=== PATIENT | male | born 1970 | race Caucasian/White ===

== ENCOUNTER 2023-05-22 14:57 | Inpatient (IN) | payer OTHER ==
[2023-05-22 15:41] VITALS: BMI 29.1
[2023-05-22] MEDS ORDERED: MAGNESIUM HYDROX 2400MG/30ML ORAL SUSPENSION 30 ML CUP PO PRN (16:06)
[2023-05-22] MEDS ORDERED: POLYETHYLENE GLYCOL (HEALTHYLAX) 3350 17 GM PACKET PO PRN (16:06)
[2023-05-22] MEDS ORDERED: BENZOCAINE/MENTHOL (CHLORASEPTIC ) LOZENGE MM PRN (16:06)
[2023-05-22] MEDS ORDERED: AMMONIUM LACTATE 12% LOTION 225 GM BOTTLE TP PRN (16:06)
[2023-05-22] MEDS ORDERED: NALOXONE HCL (KLOXXADO) 8 MG SPRAY NS PRN (16:06)
[2023-05-22] MEDS ORDERED: IBUPROFEN 400 MG TABLET (FP) PO PRN (16:06)
[2023-05-22] MEDS ORDERED: LOPERAMIDE HCL 2 MG CAPSULE PO PRN (16:06)
[2023-05-22] MEDS ORDERED: TUBERCULIN PPD 5 TU/0.1ML SYRINGE (IN PATIENT USE ONLY) ID ONE (16:06)
[2023-05-22] MEDS ORDERED: guaiFENesin 600 MG TABLET.ER (FP) PO PRN (16:06)
[2023-05-22] MEDS ORDERED: MAG HYDROX/AL HYDROX/SIMETH 30 ML UNIT-DOSE CUP PO PRN (16:06)
[2023-05-22] MEDS ORDERED: IBUPROFEN 600 MG TABLET (FP) PO PRN (16:06)
[2023-05-22] MEDS ORDERED: BENZONATATE 200 MG CAPSULE PO PRN (16:06)
[2023-05-22] MEDS ORDERED: COLLOIDAL OATMEAL 1 BAR EACH TP PRN (16:06)
[2023-05-22] MEDS ORDERED: NALOXONE HCL 0.4 MG/ML VIAL IM PRN (16:06)
[2023-05-22] MEDS ORDERED: SENNOSIDES 8.6MG TABLET (FP) PO PRN (16:51)
[2023-05-22] MEDS ORDERED: [UNRECOGNIZED DRUG - OTHER] PO PRN (16:51)
[2023-05-22] MEDS ORDERED: DEXTROMETHORPHAN PO PRN (16:51)
[2023-05-22] MEDS ORDERED: BENZOCAINE PO PRN (16:51)
[2023-05-22] MEDS ORDERED: RAMELTEON 8 MG PO PRN (16:51)
[2023-05-22] MEDS ORDERED: TUBERCULIN PPD 5 TU/0.1ML VIAL ID ONE (18:05)
[2023-05-22] MEDS: NICOTINE 7 MG/24 HOURS TOPICAL PATCH TD SCH (18:08)
[2023-05-22] MEDS ORDERED: ATORVASTATIN CA 40 MG TABLET (FP) ONE (21:08)
[2023-05-22] MEDS: THIAMINE HCL 100 MG TABLET (FP) PO SCH (21:39)
[2023-05-22] MEDS: MELATONIN 5 MG TABLETS PO SCH (21:39)
[2023-05-22] MEDS: DIVALPROEX SODIUM 500 MG TABLET E.C. PO SCH (21:39)
[2023-05-22] MEDS: GABAPENTIN 300 MG CAPSULE PO SCH (21:39)
[2023-05-22] MEDS: ATORVASTATIN CA 80 MG TABLET (FP) PO SCH (21:39)
[2023-05-22] MEDS: INSULIN (LEVEMIR) 100 UNITS/ML UNITS SQ SCH (21:40)
[2023-05-22] MEDS: SACUBITRIL/VALSARTAN 24 MG-26 MG TABLET PO SCH (21:56)
[2023-05-22] MEDS: CARVEDILOL 12.5 MG TABLET (FP) PO SCH (23:31)
[2023-05-23] MEDS: ACETAMINOPHEN 325 MG TABLET (FP) PO PRN ×2 (06:17→21:02)
[2023-05-23] MEDS: PATIENT'S OWN MEDICATION (NON-FORMULARY) (Insulin Lispro [Humalog] 100 UNIT/ML Vial) SQ SCH ×2 (07:11→07:15)
[2023-05-23] MEDS ORDERED: INSULIN SLIDING SCALE (NOVOLOG) 1 VIAL SQ ONE (08:00)
[2023-05-23] MEDS ORDERED: INSULIN (NOVOLOG) ASPART 100 UNITS/ML 10ML VIAL SQ ONE (08:00)
[2023-05-23] MEDS: PRENATAL VITAMINS W/ FOLIC ACID TABLET (FP) PO SCH (09:58)
[2023-05-23] MEDS: ASPIRIN 81 MG CHEWABLE TABLETS PO SCH (09:58)
[2023-05-23] MEDS: NICOTINE 7 MG/24 HOURS TOPICAL PATCH TD SCH (09:59)
[2023-05-23] MEDS: GABAPENTIN 300 MG CAPSULE PO SCH ×2 (09:59→21:01)
[2023-05-23] MEDS: PANTOPRAZOLE 40 MG TABLET PO SCH (09:59)
[2023-05-23] MEDS: CLOPIDOGREL BISULFATE 75 MG TABLET (FP) PO SCH (09:59)
[2023-05-23] MEDS: CARVEDILOL 12.5 MG TABLET (FP) PO SCH ×2 (09:59→21:01)
[2023-05-23] MEDS: DIVALPROEX SODIUM 500 MG TABLET E.C. PO SCH ×2 (09:59→21:01)
[2023-05-23] MEDS: FUROSEMIDE 40 MG TABLET (FP) PO SCH (09:59)
[2023-05-23] MEDS: SPIRONOLACTONE 25 MG TABLET PO SCH (09:59)
[2023-05-23] MEDS ORDERED: INSULIN SLIDING SCALE (NOVOLOG) 1 VIAL SQ SCH ×2 (11:00)
[2023-05-23] MEDS: SACUBITRIL/VALSARTAN 24 MG-26 MG TABLET PO SCH ×2 (11:36→21:01)
[2023-05-23] MEDS: INSULIN SLIDING SCALE (NOVOLOG) 1 VIAL SQ SCH ×2 (11:39→16:38)
[2023-05-23] MEDS ORDERED: ATORVASTATIN CA 40 MG TABLET (FP) ONE (18:43)
[2023-05-23] MEDS: THIAMINE HCL 100 MG TABLET (FP) PO SCH (21:01)
[2023-05-23] MEDS: MELATONIN 5 MG TABLETS PO SCH (21:01)
[2023-05-23] MEDS: ATORVASTATIN CA 80 MG TABLET (FP) PO SCH (21:01)
[2023-05-23] MEDS: INSULIN (LEVEMIR) 100 UNITS/ML UNITS SQ SCH (21:03)
[2023-05-24] MEDS: ACETAMINOPHEN 325 MG TABLET (FP) PO PRN ×2 (06:35→20:50)
[2023-05-24] MEDS: INSULIN SLIDING SCALE (NOVOLOG) 1 VIAL SQ SCH ×3 (06:38→17:13)
[2023-05-24] MEDS: EMPAGLIFLOZIN 25 MG TABLET PO SCH (06:50)
[2023-05-24 08:36] LABS: URINE APPEARANCE CLEAR; URINE BILIRUBIN NEGATIVE (NEGATIVE); URINE COLOR YELLOW; URINE GLUCOSE (UA) 3+ (NEGATIVE); URINE KETONE TRACE (NEGATIVE); URINE LEUK ESTERASE NEGATIVE (NEGATIVE); URINE NITRITE NEGATIVE (NEGATIVE); URINE PROTEIN TRACE (NEGATIVE); URINE UROBILINOGEN 0.2 mg/dL (0.2-1.0)
[2023-05-24] MEDS: GABAPENTIN 300 MG CAPSULE PO SCH ×2 (09:44→21:20)
[2023-05-24] MEDS: CLOPIDOGREL BISULFATE 75 MG TABLET (FP) PO SCH (09:44)
[2023-05-24] MEDS: DIVALPROEX SODIUM 500 MG TABLET E.C. PO SCH ×2 (09:44→21:20)
[2023-05-24] MEDS: PRENATAL VITAMINS W/ FOLIC ACID TABLET (FP) PO SCH (09:44)
[2023-05-24] MEDS: FUROSEMIDE 40 MG TABLET (FP) PO SCH (09:44)
[2023-05-24] MEDS: SPIRONOLACTONE 25 MG TABLET PO SCH (09:44)
[2023-05-24] MEDS: PANTOPRAZOLE 40 MG TABLET PO SCH (09:44)
[2023-05-24] MEDS: ASPIRIN 81 MG CHEWABLE TABLETS PO SCH (09:45)
[2023-05-24] MEDS: CARVEDILOL 12.5 MG TABLET (FP) PO SCH ×2 (09:45→21:20)
[2023-05-24] MEDS: NICOTINE 7 MG/24 HOURS TOPICAL PATCH TD SCH (09:48)
[2023-05-24] MEDS: SACUBITRIL/VALSARTAN 24 MG-26 MG TABLET PO SCH ×2 (10:51→21:21)
[2023-05-24] MEDS ORDERED: ATORVASTATIN CA 40 MG TABLET (FP) ONE (19:11)
[2023-05-24] MEDS: MELATONIN 5 MG TABLETS PO SCH (21:21)
[2023-05-24] MEDS: THIAMINE HCL 100 MG TABLET (FP) PO SCH (21:21)
[2023-05-24] MEDS: ATORVASTATIN CA 80 MG TABLET (FP) PO SCH (21:21)
[2023-05-24] MEDS: INSULIN (LEVEMIR) 100 UNITS/ML UNITS SQ SCH (21:22)
[2023-05-25] MEDS: INSULIN SLIDING SCALE (NOVOLOG) 1 VIAL SQ SCH ×3 (07:29→16:46)
[2023-05-25] MEDS: EMPAGLIFLOZIN 25 MG TABLET PO SCH (07:39)
[2023-05-25] MEDS: PRENATAL VITAMINS W/ FOLIC ACID TABLET (FP) PO SCH (10:14)
[2023-05-25] MEDS: CLOPIDOGREL BISULFATE 75 MG TABLET (FP) PO SCH (10:15)
[2023-05-25] MEDS: PANTOPRAZOLE 40 MG TABLET PO SCH (10:15)
[2023-05-25] MEDS: DIVALPROEX SODIUM 500 MG TABLET E.C. PO SCH ×2 (10:15→21:13)
[2023-05-25] MEDS: ASPIRIN 81 MG CHEWABLE TABLETS PO SCH (10:15)
[2023-05-25] MEDS: FUROSEMIDE 40 MG TABLET (FP) PO SCH (10:15)
[2023-05-25] MEDS: SACUBITRIL/VALSARTAN 24 MG-26 MG TABLET PO SCH ×2 (10:15→21:14)
[2023-05-25] MEDS: GABAPENTIN 300 MG CAPSULE PO SCH ×2 (10:15→21:12)
[2023-05-25] MEDS: CARVEDILOL 12.5 MG TABLET (FP) PO SCH ×2 (10:15→21:12)
[2023-05-25] MEDS: SPIRONOLACTONE 25 MG TABLET PO SCH (10:16)
[2023-05-25] MEDS: NICOTINE 7 MG/24 HOURS TOPICAL PATCH TD SCH (10:16)
[2023-05-25] MEDS: ACETAMINOPHEN 325 MG TABLET (FP) PO PRN ×2 (11:57→17:39)
[2023-05-25] MEDS ORDERED: ATORVASTATIN CA 20 MG TABLET (FP) ONE (19:27)
[2023-05-25] MEDS: ATORVASTATIN CA 80 MG TABLET (FP) PO SCH (21:13)
[2023-05-25] MEDS: THIAMINE HCL 100 MG TABLET (FP) PO SCH (21:13)
[2023-05-25] MEDS: MELATONIN 5 MG TABLETS PO SCH (21:13)
[2023-05-25] MEDS: INSULIN (LEVEMIR) 100 UNITS/ML UNITS SQ SCH (21:14)
[2023-05-26] MEDS: EMPAGLIFLOZIN 25 MG TABLET PO SCH (06:13)
[2023-05-26] MEDS: ACETAMINOPHEN 325 MG TABLET (FP) PO PRN (06:13)
[2023-05-26] MEDS: INSULIN SLIDING SCALE (NOVOLOG) 1 VIAL SQ SCH ×3 (06:13→16:22)
[2023-05-26] MEDS: PRENATAL VITAMINS W/ FOLIC ACID TABLET (FP) PO SCH (10:20)
[2023-05-26] MEDS: NICOTINE 7 MG/24 HOURS TOPICAL PATCH TD SCH (10:21)
[2023-05-26] MEDS: CLOPIDOGREL BISULFATE 75 MG TABLET (FP) PO SCH (10:21)
[2023-05-26] MEDS: DIVALPROEX SODIUM 500 MG TABLET E.C. PO SCH ×2 (10:21→21:01)
[2023-05-26] MEDS: SPIRONOLACTONE 25 MG TABLET PO SCH (10:21)
[2023-05-26] MEDS: PANTOPRAZOLE 40 MG TABLET PO SCH (10:21)
[2023-05-26] MEDS: ASPIRIN 81 MG CHEWABLE TABLETS PO SCH (10:21)
[2023-05-26] MEDS: FUROSEMIDE 40 MG TABLET (FP) PO SCH (10:21)
[2023-05-26] MEDS: GABAPENTIN 300 MG CAPSULE PO SCH ×2 (10:22→21:01)
[2023-05-26] MEDS: CARVEDILOL 12.5 MG TABLET (FP) PO SCH ×2 (10:24→21:01)
[2023-05-26] MEDS: SACUBITRIL/VALSARTAN 24 MG-26 MG TABLET PO SCH ×2 (10:24→21:02)
[2023-05-26] MEDS: LIDOCAINE 5% TOPICAL PATCH TP SCH (11:30)
[2023-05-26] MEDS ORDERED: ATORVASTATIN CA 40 MG TABLET (FP) ONE (18:49)
[2023-05-26] MEDS: THIAMINE HCL 100 MG TABLET (FP) PO SCH (21:01)
[2023-05-26] MEDS: MELATONIN 5 MG TABLETS PO SCH (21:01)
[2023-05-26] MEDS: INSULIN (LEVEMIR) 100 UNITS/ML UNITS SQ SCH (21:02)
[2023-05-26] MEDS: ATORVASTATIN CA 80 MG TABLET (FP) PO SCH (21:02)
[2023-05-26] MEDS: LIDOCAINE PATCH REMOVAL MC SCH (21:03)
[2023-05-26] MEDS: hydrOXYzine PAMOATE 25 MG CAPSULE (FP) PO PRN (21:03)
[2023-05-27] MEDS: INSULIN SLIDING SCALE (NOVOLOG) 1 VIAL SQ SCH ×3 (06:31→16:19)
[2023-05-27] MEDS: EMPAGLIFLOZIN 25 MG TABLET PO SCH (07:03)
[2023-05-27] MEDS: SPIRONOLACTONE 25 MG TABLET PO SCH (09:59)
[2023-05-27] MEDS: PRENATAL VITAMINS W/ FOLIC ACID TABLET (FP) PO SCH (09:59)
[2023-05-27] MEDS: GABAPENTIN 300 MG CAPSULE PO SCH ×2 (10:00→21:16)
[2023-05-27] MEDS: CLOPIDOGREL BISULFATE 75 MG TABLET (FP) PO SCH (10:00)
[2023-05-27] MEDS: FUROSEMIDE 40 MG TABLET (FP) PO SCH (10:00)
[2023-05-27] MEDS: PANTOPRAZOLE 40 MG TABLET PO SCH (10:00)
[2023-05-27] MEDS: DIVALPROEX SODIUM 500 MG TABLET E.C. PO SCH ×2 (10:00→21:16)
[2023-05-27] MEDS: ASPIRIN 81 MG CHEWABLE TABLETS PO SCH (10:00)
[2023-05-27] MEDS: LIDOCAINE 5% TOPICAL PATCH TP SCH (10:01)
[2023-05-27] MEDS: NICOTINE 7 MG/24 HOURS TOPICAL PATCH TD SCH (10:02)
[2023-05-27] MEDS: CARVEDILOL 12.5 MG TABLET (FP) PO SCH ×2 (10:20→21:16)
[2023-05-27] MEDS: SACUBITRIL/VALSARTAN 24 MG-26 MG TABLET PO SCH ×2 (10:25→21:16)
[2023-05-27 14:24] LABS: POTASSIUM 4.2 mmol/L (3.5-5.1)
[2023-05-27 14:27] LABS: BASO % 0.5 % (0-2.0); CALCIUM 8.7 mg/dL (8.5-10.1); EOS % 3.7 % (0-4.5); HEMATOCRIT 36.2 % (35.4-49); HEMOGLOBIN 12.6 GM/dL (11.7-16.9); LYMPH % 27.9 % (8-40); MCH 31.1 pg (25.7-33.7); MCHC 34.8 g/dl (32.0-35.9); MEAN CELL VOLUME 89.3 fl (80-96); MEAN PLT VOLUME 7.6 fl (7.5-11.1); MONO % 9.5 % (3.8-10.2); NEUT % 58.4 % (42.8-82.8); PLATELET COUNT 171 10^3/uL (134-434); RBC 4.05 M/mm3 (4.00-5.60); RDW 18.3 % (11.9-15.9); WHITE BLOOD COUNT 3.8 K/mm3 (4.0-10.0)
[2023-05-27 14:28] LABS: ALBUMIN 3.2 g/dl (3.4-5.0); BLOOD UREA NITROGEN 26.6 mg/dL (7-18); MAGNESIUM 2.1 mg/dL (1.8-2.4)
[2023-05-27 14:31] LABS: INR 1.07 (0.83-1.09); PHOSPHOROUS 3.9 mg/dL (2.5-4.9); PROTHROMBIN TIME (PATIENT) 12.4 SEC (9.7-13.0)
[2023-05-27 14:32] LABS: TOT PROT 6.7 g/dl (6.4-8.2)
[2023-05-27 14:33] LABS: BILIRUBIN,TOTAL 0.2 mg/dL (0.2-1)
[2023-05-27] MEDS: ACETAMINOPHEN 325 MG TABLET (FP) PO PRN (18:08)
[2023-05-27] MEDS ORDERED: ATORVASTATIN CA 40 MG TABLET (FP) ONE (18:50)
[2023-05-27] MEDS: THIAMINE HCL 100 MG TABLET (FP) PO SCH (21:15)
[2023-05-27] MEDS: ATORVASTATIN CA 80 MG TABLET (FP) PO SCH (21:16)
[2023-05-27] MEDS: MELATONIN 5 MG TABLETS PO SCH (21:16)
[2023-05-27] MEDS: hydrOXYzine PAMOATE 25 MG CAPSULE (FP) PO PRN (21:17)
[2023-05-27] MEDS: INSULIN (LEVEMIR) 100 UNITS/ML UNITS SQ SCH (21:18)
[2023-05-27] MEDS: LIDOCAINE PATCH REMOVAL MC SCH (21:19)
[2023-05-28] MEDS: INSULIN SLIDING SCALE (NOVOLOG) 1 VIAL SQ SCH ×3 (06:29→16:27)
[2023-05-28] MEDS: EMPAGLIFLOZIN 25 MG TABLET PO SCH (06:30)
[2023-05-28] MEDS: LIDOCAINE 5% TOPICAL PATCH TP SCH (09:41)
[2023-05-28] MEDS: CLOPIDOGREL BISULFATE 75 MG TABLET (FP) PO SCH (09:42)
[2023-05-28] MEDS: SACUBITRIL/VALSARTAN 24 MG-26 MG TABLET PO SCH ×2 (09:42→21:30)
[2023-05-28] MEDS: FUROSEMIDE 40 MG TABLET (FP) PO SCH (09:42)
[2023-05-28] MEDS: PANTOPRAZOLE 40 MG TABLET PO SCH (09:42)
[2023-05-28] MEDS: GABAPENTIN 300 MG CAPSULE PO SCH ×2 (09:42→21:29)
[2023-05-28] MEDS: ASPIRIN 81 MG CHEWABLE TABLETS PO SCH (09:42)
[2023-05-28] MEDS: CARVEDILOL 12.5 MG TABLET (FP) PO SCH ×2 (09:42→21:29)
[2023-05-28] MEDS: DIVALPROEX SODIUM 500 MG TABLET E.C. PO SCH ×2 (09:42→21:29)
[2023-05-28] MEDS: PRENATAL VITAMINS W/ FOLIC ACID TABLET (FP) PO SCH (09:42)
[2023-05-28] MEDS: SPIRONOLACTONE 25 MG TABLET PO SCH (09:42)
[2023-05-28] MEDS: NICOTINE 7 MG/24 HOURS TOPICAL PATCH TD SCH (09:43)
[2023-05-28] MEDS: ACETAMINOPHEN 325 MG TABLET (FP) PO PRN ×2 (09:45→21:31)
[2023-05-28] MEDS ORDERED: ATORVASTATIN CA 40 MG TABLET (FP) ONE (18:43)
[2023-05-28] MEDS: MELATONIN 5 MG TABLETS PO SCH (21:29)
[2023-05-28] MEDS: ATORVASTATIN CA 80 MG TABLET (FP) PO SCH (21:29)
[2023-05-28] MEDS: THIAMINE HCL 100 MG TABLET (FP) PO SCH (21:29)
[2023-05-28] MEDS: hydrOXYzine PAMOATE 25 MG CAPSULE (FP) PO PRN (21:30)
[2023-05-28] MEDS: INSULIN (LEVEMIR) 100 UNITS/ML UNITS SQ SCH (21:32)
[2023-05-28] MEDS: LIDOCAINE PATCH REMOVAL MC SCH (21:32)
[2023-05-29] MEDS: EMPAGLIFLOZIN 25 MG TABLET PO SCH (06:58)
[2023-05-29] MEDS: INSULIN SLIDING SCALE (NOVOLOG) 1 VIAL SQ SCH ×3 (06:58→16:38)
[2023-05-29] MEDS: PANTOPRAZOLE 40 MG TABLET PO SCH (09:56)
[2023-05-29] MEDS: CLOPIDOGREL BISULFATE 75 MG TABLET (FP) PO SCH (09:56)
[2023-05-29] MEDS: GABAPENTIN 300 MG CAPSULE PO SCH ×2 (09:56→21:04)
[2023-05-29] MEDS: PRENATAL VITAMINS W/ FOLIC ACID TABLET (FP) PO SCH (09:56)
[2023-05-29] MEDS: ASPIRIN 81 MG CHEWABLE TABLETS PO SCH (09:56)
[2023-05-29] MEDS: NICOTINE 7 MG/24 HOURS TOPICAL PATCH TD SCH (09:56)
[2023-05-29] MEDS: DIVALPROEX SODIUM 500 MG TABLET E.C. PO SCH ×2 (09:56→21:04)
[2023-05-29] MEDS: FUROSEMIDE 40 MG TABLET (FP) PO SCH (09:56)
[2023-05-29] MEDS: SPIRONOLACTONE 25 MG TABLET PO SCH (09:57)
[2023-05-29] MEDS: SACUBITRIL/VALSARTAN 24 MG-26 MG TABLET PO SCH ×2 (09:57→21:04)
[2023-05-29] MEDS: CARVEDILOL 12.5 MG TABLET (FP) PO SCH ×2 (09:57→21:04)
[2023-05-29] MEDS: LIDOCAINE 5% TOPICAL PATCH TP SCH (09:58)
[2023-05-29] MEDS ORDERED: INSULIN SLIDING SCALE (NOVOLOG) 1 VIAL SQ ONE (12:01)
[2023-05-29] MEDS ORDERED: ATORVASTATIN CA 40 MG TABLET (FP) ONE (18:43)
[2023-05-29] MEDS: MELATONIN 5 MG TABLETS PO SCH (21:03)
[2023-05-29] MEDS: THIAMINE HCL 100 MG TABLET (FP) PO SCH (21:03)
[2023-05-29] MEDS: ATORVASTATIN CA 80 MG TABLET (FP) PO SCH (21:04)
[2023-05-29] MEDS: INSULIN (LEVEMIR) 100 UNITS/ML UNITS SQ SCH (21:05)
[2023-05-29] MEDS: LIDOCAINE PATCH REMOVAL MC SCH (21:05)
[2023-05-30] MEDS: INSULIN SLIDING SCALE (NOVOLOG) 1 VIAL SQ SCH ×3 (06:17→17:20)
[2023-05-30] MEDS: EMPAGLIFLOZIN 25 MG TABLET PO SCH (06:19)
[2023-05-30] MEDS: PRENATAL VITAMINS W/ FOLIC ACID TABLET (FP) PO SCH (09:06)
[2023-05-30] MEDS: CARVEDILOL 12.5 MG TABLET (FP) PO SCH ×2 (09:06→21:05)
[2023-05-30] MEDS: LIDOCAINE 5% TOPICAL PATCH TP SCH (09:07)
[2023-05-30] MEDS: NICOTINE 7 MG/24 HOURS TOPICAL PATCH TD SCH (09:07)
[2023-05-30] MEDS: GABAPENTIN 300 MG CAPSULE PO SCH ×2 (09:07→21:05)
[2023-05-30] MEDS: SPIRONOLACTONE 25 MG TABLET PO SCH (09:07)
[2023-05-30] MEDS: DIVALPROEX SODIUM 500 MG TABLET E.C. PO SCH ×2 (09:07→21:05)
[2023-05-30] MEDS: FUROSEMIDE 40 MG TABLET (FP) PO SCH (09:07)
[2023-05-30] MEDS: CLOPIDOGREL BISULFATE 75 MG TABLET (FP) PO SCH (09:07)
[2023-05-30] MEDS: PANTOPRAZOLE 40 MG TABLET PO SCH (09:07)
[2023-05-30] MEDS: SACUBITRIL/VALSARTAN 24 MG-26 MG TABLET PO SCH ×2 (09:07→21:06)
[2023-05-30] MEDS: ASPIRIN 81 MG CHEWABLE TABLETS PO SCH (09:07)
[2023-05-30] MEDS ORDERED: ATORVASTATIN CA 40 MG TABLET (FP) ONE (18:49)
[2023-05-30] MEDS: ATORVASTATIN CA 80 MG TABLET (FP) PO SCH (21:05)
[2023-05-30] MEDS: LIDOCAINE PATCH REMOVAL MC SCH (21:06)
[2023-05-30] MEDS: MELATONIN 5 MG TABLETS PO SCH (21:06)
[2023-05-30] MEDS: THIAMINE HCL 100 MG TABLET (FP) PO SCH (21:06)
[2023-05-30] MEDS: INSULIN (LEVEMIR) 100 UNITS/ML UNITS SQ SCH (21:06)
[2023-05-31] MEDS: EMPAGLIFLOZIN 25 MG TABLET PO SCH (06:35)
[2023-05-31] MEDS: INSULIN SLIDING SCALE (NOVOLOG) 1 VIAL SQ SCH ×3 (06:35→16:32)
[2023-05-31] MEDS: SACUBITRIL/VALSARTAN 24 MG-26 MG TABLET PO SCH ×2 (09:40→21:05)
[2023-05-31] MEDS: CLOPIDOGREL BISULFATE 75 MG TABLET (FP) PO SCH (09:40)
[2023-05-31] MEDS: NICOTINE 7 MG/24 HOURS TOPICAL PATCH TD SCH (09:40)
[2023-05-31] MEDS: PRENATAL VITAMINS W/ FOLIC ACID TABLET (FP) PO SCH (09:40)
[2023-05-31] MEDS: ASPIRIN 81 MG CHEWABLE TABLETS PO SCH (09:40)
[2023-05-31] MEDS: LIDOCAINE 5% TOPICAL PATCH TP SCH (09:41)
[2023-05-31] MEDS: DIVALPROEX SODIUM 500 MG TABLET E.C. PO SCH ×2 (09:41→21:04)
[2023-05-31] MEDS: PANTOPRAZOLE 40 MG TABLET PO SCH (09:41)
[2023-05-31] MEDS: SPIRONOLACTONE 25 MG TABLET PO SCH (09:41)
[2023-05-31] MEDS: GABAPENTIN 300 MG CAPSULE PO SCH ×2 (09:41→21:04)
[2023-05-31] MEDS: FUROSEMIDE 40 MG TABLET (FP) PO SCH (09:41)
[2023-05-31] MEDS: CARVEDILOL 12.5 MG TABLET (FP) PO SCH ×2 (09:41→21:04)
[2023-05-31] MEDS ORDERED: INSULIN SLIDING SCALE (NOVOLOG) 1 VIAL SQ ONE (11:43)
[2023-05-31] MEDS: ACETAMINOPHEN 325 MG TABLET (FP) PO PRN (16:34)
[2023-05-31] MEDS ORDERED: ATORVASTATIN CA 40 MG TABLET (FP) ONE (18:45)
[2023-05-31] MEDS: MELATONIN 5 MG TABLETS PO SCH (21:04)
[2023-05-31] MEDS: THIAMINE HCL 100 MG TABLET (FP) PO SCH (21:04)
[2023-05-31] MEDS: LIDOCAINE PATCH REMOVAL MC SCH (21:05)
[2023-05-31] MEDS: ATORVASTATIN CA 80 MG TABLET (FP) PO SCH (21:05)
[2023-05-31] MEDS: INSULIN (LEVEMIR) 100 UNITS/ML UNITS SQ SCH (21:06)
[2023-06-01] MEDS: hydrOXYzine PAMOATE 25 MG CAPSULE (FP) PO PRN (06:04)
[2023-06-01] MEDS: EMPAGLIFLOZIN 25 MG TABLET PO SCH (06:04)
[2023-06-01] MEDS: INSULIN SLIDING SCALE (NOVOLOG) 1 VIAL SQ SCH ×3 (06:05→16:41)
[2023-06-01] MEDS: ACETAMINOPHEN 325 MG TABLET (FP) PO PRN (08:24)
[2023-06-01] MEDS: PANTOPRAZOLE 40 MG TABLET PO SCH (09:20)
[2023-06-01] MEDS: PRENATAL VITAMINS W/ FOLIC ACID TABLET (FP) PO SCH (09:20)
[2023-06-01] MEDS: SACUBITRIL/VALSARTAN 24 MG-26 MG TABLET PO SCH ×2 (09:20→21:00)
[2023-06-01] MEDS: CARVEDILOL 12.5 MG TABLET (FP) PO SCH ×2 (09:20→21:00)
[2023-06-01] MEDS: FUROSEMIDE 40 MG TABLET (FP) PO SCH (09:20)
[2023-06-01] MEDS: ASPIRIN 81 MG CHEWABLE TABLETS PO SCH (09:20)
[2023-06-01] MEDS: CLOPIDOGREL BISULFATE 75 MG TABLET (FP) PO SCH (09:20)
[2023-06-01] MEDS: GABAPENTIN 300 MG CAPSULE PO SCH ×2 (09:20→21:00)
[2023-06-01] MEDS: DIVALPROEX SODIUM 500 MG TABLET E.C. PO SCH ×2 (09:20→21:00)
[2023-06-01] MEDS: SPIRONOLACTONE 25 MG TABLET PO SCH (09:20)
[2023-06-01] MEDS: LIDOCAINE 5% TOPICAL PATCH TP SCH (09:20)
[2023-06-01] MEDS: NICOTINE 7 MG/24 HOURS TOPICAL PATCH TD SCH (09:21)
[2023-06-01] MEDS ORDERED: ATORVASTATIN CA 40 MG TABLET (FP) ONE (18:37)
[2023-06-01] MEDS: THIAMINE HCL 100 MG TABLET (FP) PO SCH (21:00)
[2023-06-01] MEDS: ATORVASTATIN CA 80 MG TABLET (FP) PO SCH (21:00)
[2023-06-01] MEDS: MELATONIN 5 MG TABLETS PO SCH (21:00)
[2023-06-01] MEDS: LIDOCAINE PATCH REMOVAL MC SCH (21:01)
[2023-06-01] MEDS: INSULIN (LEVEMIR) 100 UNITS/ML UNITS SQ SCH (21:01)
[2023-06-02] MEDS: INSULIN SLIDING SCALE (NOVOLOG) 1 VIAL SQ SCH ×3 (06:22→17:10)
[2023-06-02] MEDS: EMPAGLIFLOZIN 25 MG TABLET PO SCH (06:23)
[2023-06-02 07:00] VITALS: RESP 18
[2023-06-02] MEDS: ASPIRIN 81 MG CHEWABLE TABLETS PO SCH (09:49)
[2023-06-02] MEDS: SACUBITRIL/VALSARTAN 24 MG-26 MG TABLET PO SCH ×2 (09:49→21:11)
[2023-06-02] MEDS: PRENATAL VITAMINS W/ FOLIC ACID TABLET (FP) PO SCH (09:49)
[2023-06-02] MEDS: PANTOPRAZOLE 40 MG TABLET PO SCH (09:49)
[2023-06-02] MEDS: NICOTINE 7 MG/24 HOURS TOPICAL PATCH TD SCH (09:50)
[2023-06-02] MEDS: DIVALPROEX SODIUM 500 MG TABLET E.C. PO SCH ×2 (09:50→21:10)
[2023-06-02] MEDS: FUROSEMIDE 40 MG TABLET (FP) PO SCH (09:50)
[2023-06-02] MEDS: LIDOCAINE 5% TOPICAL PATCH TP SCH (09:50)
[2023-06-02] MEDS: GABAPENTIN 300 MG CAPSULE PO SCH ×2 (09:50→21:10)
[2023-06-02] MEDS: SPIRONOLACTONE 25 MG TABLET PO SCH (09:50)
[2023-06-02] MEDS: CARVEDILOL 12.5 MG TABLET (FP) PO SCH ×2 (09:50→21:09)
[2023-06-02] MEDS: CLOPIDOGREL BISULFATE 75 MG TABLET (FP) PO SCH (09:50)
[2023-06-02] MEDS: ACETAMINOPHEN 325 MG TABLET (FP) PO PRN ×2 (09:51→21:11)
[2023-06-02] MEDS: CHOLECALCIFEROL (VIT D3) 400 UNIT (10 MCG) TABLET PO SCH (15:08)
[2023-06-02] MEDS: ATORVASTATIN CA 80 MG TABLET (FP) PO SCH (21:09)
[2023-06-02] MEDS: MELATONIN 5 MG TABLETS PO SCH (21:11)
[2023-06-02] MEDS: LIDOCAINE PATCH REMOVAL MC SCH (21:11)
[2023-06-02] MEDS: THIAMINE HCL 100 MG TABLET (FP) PO SCH (21:11)
[2023-06-02] MEDS: INSULIN (LEVEMIR) 100 UNITS/ML UNITS SQ SCH (21:13)
[2023-06-03] MEDS: INSULIN SLIDING SCALE (NOVOLOG) 1 VIAL SQ SCH ×3 (06:16→16:27)
[2023-06-03] MEDS: EMPAGLIFLOZIN 25 MG TABLET PO SCH (06:18)
[2023-06-03] MEDS: ACETAMINOPHEN 325 MG TABLET (FP) PO PRN (06:19)
[2023-06-03] MEDS: NICOTINE 7 MG/24 HOURS TOPICAL PATCH TD SCH (09:07)
[2023-06-03] MEDS: DIVALPROEX SODIUM 500 MG TABLET E.C. PO SCH ×2 (09:07→21:19)
[2023-06-03] MEDS: ASPIRIN 81 MG CHEWABLE TABLETS PO SCH (09:07)
[2023-06-03] MEDS: PANTOPRAZOLE 40 MG TABLET PO SCH (09:07)
[2023-06-03] MEDS: FUROSEMIDE 40 MG TABLET (FP) PO SCH (09:07)
[2023-06-03] MEDS: LIDOCAINE 5% TOPICAL PATCH TP SCH (09:07)
[2023-06-03] MEDS: CARVEDILOL 12.5 MG TABLET (FP) PO SCH ×2 (09:07→21:19)
[2023-06-03] MEDS: SPIRONOLACTONE 25 MG TABLET PO SCH (09:07)
[2023-06-03] MEDS: SACUBITRIL/VALSARTAN 24 MG-26 MG TABLET PO SCH ×2 (09:07→21:20)
[2023-06-03] MEDS: PRENATAL VITAMINS W/ FOLIC ACID TABLET (FP) PO SCH (09:07)
[2023-06-03] MEDS: CLOPIDOGREL BISULFATE 75 MG TABLET (FP) PO SCH (09:07)
[2023-06-03] MEDS: GABAPENTIN 300 MG CAPSULE PO SCH ×2 (09:07→21:19)
[2023-06-03] MEDS: CHOLECALCIFEROL (VIT D3) 400 UNIT (10 MCG) TABLET PO SCH (09:07)
[2023-06-03] MEDS ORDERED: ATORVASTATIN CA 40 MG TABLET (FP) ONE (18:41)
[2023-06-03] MEDS: MELATONIN 5 MG TABLETS PO SCH (21:19)
[2023-06-03] MEDS: THIAMINE HCL 100 MG TABLET (FP) PO SCH (21:20)
[2023-06-03] MEDS: ATORVASTATIN CA 80 MG TABLET (FP) PO SCH (21:20)
[2023-06-03] MEDS: INSULIN (LEVEMIR) 100 UNITS/ML UNITS SQ SCH (21:21)
[2023-06-03] MEDS: LIDOCAINE PATCH REMOVAL MC SCH (21:21)
[2023-06-04] MEDS: INSULIN SLIDING SCALE (NOVOLOG) 1 VIAL SQ SCH ×3 (06:23→16:29)
[2023-06-04] MEDS: EMPAGLIFLOZIN 25 MG TABLET PO SCH (06:23)
[2023-06-04] MEDS: SACUBITRIL/VALSARTAN 24 MG-26 MG TABLET PO SCH ×2 (09:22→21:22)
[2023-06-04] MEDS: CARVEDILOL 12.5 MG TABLET (FP) PO SCH ×2 (09:23→21:22)
[2023-06-04] MEDS: PRENATAL VITAMINS W/ FOLIC ACID TABLET (FP) PO SCH (09:23)
[2023-06-04] MEDS: DIVALPROEX SODIUM 500 MG TABLET E.C. PO SCH ×2 (09:23→21:22)
[2023-06-04] MEDS: NICOTINE 7 MG/24 HOURS TOPICAL PATCH TD SCH (09:23)
[2023-06-04] MEDS: CLOPIDOGREL BISULFATE 75 MG TABLET (FP) PO SCH (09:23)
[2023-06-04] MEDS: GABAPENTIN 300 MG CAPSULE PO SCH ×2 (09:23→21:22)
[2023-06-04] MEDS: CHOLECALCIFEROL (VIT D3) 400 UNIT (10 MCG) TABLET PO SCH (09:23)
[2023-06-04] MEDS: ASPIRIN 81 MG CHEWABLE TABLETS PO SCH (09:23)
[2023-06-04] MEDS: SPIRONOLACTONE 25 MG TABLET PO SCH (09:23)
[2023-06-04] MEDS: PANTOPRAZOLE 40 MG TABLET PO SCH (09:23)
[2023-06-04] MEDS: LIDOCAINE 5% TOPICAL PATCH TP SCH (09:23)
[2023-06-04] MEDS: FUROSEMIDE 40 MG TABLET (FP) PO SCH (09:23)
[2023-06-04] MEDS: ACETAMINOPHEN 325 MG TABLET (FP) PO PRN (09:24)
[2023-06-04] MEDS ORDERED: NICOTINE POLACRILEX 4 MG GUM BUC PRN (10:15)
[2023-06-04] MEDS ORDERED: INSULIN SLIDING SCALE (NOVOLOG) 1 VIAL SQ ONE (11:17)
[2023-06-04] MEDS ORDERED: ATORVASTATIN CA 40 MG TABLET (FP) ONE (18:44)
[2023-06-04] MEDS: THIAMINE HCL 100 MG TABLET (FP) PO SCH (21:22)
[2023-06-04] MEDS: ATORVASTATIN CA 80 MG TABLET (FP) PO SCH (21:22)
[2023-06-04] MEDS: MELATONIN 5 MG TABLETS PO SCH (21:22)
[2023-06-04] MEDS: INSULIN (LEVEMIR) 100 UNITS/ML UNITS SQ SCH (21:25)
[2023-06-04] MEDS: LIDOCAINE PATCH REMOVAL MC SCH (21:25)
[2023-06-05] MEDS: INSULIN SLIDING SCALE (NOVOLOG) 1 VIAL SQ SCH (06:24)
[2023-06-05] MEDS: EMPAGLIFLOZIN 25 MG TABLET PO SCH (06:25)
[2023-06-05 07:10] VITALS: BP 146/82; PULSE 75; TEMP 97.5
[2023-06-05] MEDS: PRENATAL VITAMINS W/ FOLIC ACID TABLET (FP) PO SCH (09:16)
[2023-06-05] MEDS: ASPIRIN 81 MG CHEWABLE TABLETS PO SCH (09:16)
[2023-06-05] MEDS: SACUBITRIL/VALSARTAN 24 MG-26 MG TABLET PO SCH (09:16)
[2023-06-05] MEDS: PANTOPRAZOLE 40 MG TABLET PO SCH (09:17)
[2023-06-05] MEDS: CLOPIDOGREL BISULFATE 75 MG TABLET (FP) PO SCH (09:17)
[2023-06-05] MEDS: SPIRONOLACTONE 25 MG TABLET PO SCH (09:17)
[2023-06-05] MEDS: FUROSEMIDE 40 MG TABLET (FP) PO SCH (09:17)
[2023-06-05] MEDS: GABAPENTIN 300 MG CAPSULE PO SCH (09:17)
[2023-06-05] MEDS: CARVEDILOL 12.5 MG TABLET (FP) PO SCH (09:17)
[2023-06-05] MEDS: LIDOCAINE 5% TOPICAL PATCH TP SCH (09:17)
[2023-06-05] MEDS: CHOLECALCIFEROL (VIT D3) 400 UNIT (10 MCG) TABLET PO SCH (09:17)
[2023-06-05] MEDS: DIVALPROEX SODIUM 500 MG TABLET E.C. PO SCH (09:17)
[2023-06-05] MEDS: NICOTINE 7 MG/24 HOURS TOPICAL PATCH TD SCH (09:19)
== END 2023-06-05 09:23 | disposition home or self-care (01) | DRG 772 ==
LOC: YASAS 14:57 → Y3W 16:26 → Y5N 17:15 → Y3W 17:18
PROVIDERS: ADMIT Allergy & Immunology; ATTEND Psychiatry & Neurology Pain Medicine
PROC: HZ42ZZZ Group Counseling for Substance Abuse Treatment, Cognitive-Behavioral (ICD-10-PCS; principal; 2023-05-22)
DX: F10.20 Alcohol dependence, uncomplicated (principal); F17.210 Nicotine dependence, cigarettes, uncomplicated; E72.20 Disorder of urea cycle metabolism, unspecified; I25.10 Atherosclerotic heart disease of native coronary artery without angina pectoris; I11.0 Hypertensive heart disease with heart failure; I50.9 Heart failure, unspecified; I25.2 Old myocardial infarction; Z95.1 Presence of aortocoronary bypass graft; Z98.61 Coronary angioplasty status; Z95.810 Presence of automatic (implantable) cardiac defibrillator; E11.9 Type 2 diabetes mellitus without complications; Z79.84 Long term (current) use of oral hypoglycemic drugs; Z59.01 Sheltered homelessness
CPT/HCPCS: 36415; 80053; 81003; 82140; 82652; 82962; 83735; 84100; 85025; 85610; 86803; 93005; 93010